=== PATIENT | female | born 1960 | race Two or more races ===

== ENCOUNTER 2017-10-07 18:28 | Emergency (ER) | payer BC ==
[~2017-10-07] VITALS: Ht 162.6 cm; Wt 88.2 kg
[2017-10-07 18:39] VITALS: BP 141/85
[2017-10-07 19:12] LABS: BASOPHILS # (AUTO) 0.02 x10^3/uL (0-0.1); BASOPHILS % (AUTO) 0 % (0-1); EOSINOPHILS # (AUTO) 0.11 x10^3/uL (0-0.4); EOSINOPHILS % (AUTO) 1 % (1-7); LYMPHOCYTES # (AUTO) 2.44 x10^3/uL (1-3.4); LYMPHOCYTES % (AUTO) 28 % (22-44); MD NO; MEAN CORPUSCULAR HEMOGLOBIN 31.6 pg (27.0-34.8); MEAN CORPUSCULAR HGB CONC 34.1 g/dL (32.4-35.8); MEAN CORPUSCULAR VOLUME 92.7 fL (80-100); MONOCYTES # (AUTO) 0.44 x10^3/uL (0.2-0.8); MONOCYTES % (AUTO) 5 % (2-9); NEUTROPHILS # (AUTO) 5.62 x10^3/uL (1.8-6.8); NEUTROPHILS % (AUTO) 65 % (42-75); PLATELET COUNT 251 x10^3/uL (130-400); RED BLOOD COUNT 4.51 x10^6/uL (3.82-5.3); RED CELL DISTRIBUTION WIDTH 13.9 % (9.6-15.2)
[2017-10-07 19:25] LABS: ALANINE AMINOTRANSFERASE 30 U/L (12-78); ALBUMIN 4.1 g/dL (3.4-5.0); ANION GAP 8 mmol/L (5-15); CHLORIDE 106 mmol/L (98-107); CREATININE 0.72 mg/dL (0.55-1.02)
[2017-10-07] MEDS ORDERED: LIRA0.6P SC (19:25)
[2017-10-07] MEDS ORDERED: INSU100V8 SQ (19:26)
[2017-10-07] MEDS ORDERED: OLME20TA17 PO (19:26)
[2017-10-07 19:27] LABS: ALKALINE PHOSPHATASE 92 U/L (45-117); BILIRUBIN,TOTAL 0.5 mg/dL (0.2-1.0); TOTAL PROTEIN 7.9 g/dL (6.4-8.2)
[2017-10-07 20:02] LABS: MICROSCOPIC INDICATED
[2017-10-07 20:06] LABS: CULTURE INDICATED? NO
== END 2017-10-07 21:16 | disposition home or self-care (01) ==
LOC: ED 20:35
DX: E11.65 Type 2 diabetes mellitus with hyperglycemia (principal); K59.00 Constipation, unspecified; I10 Essential (primary) hypertension; M54.5 Low back pain; Z79.4 Long term (current) use of insulin
CPT/HCPCS: 36415; 74021; 80053; 81001; 85025; 93005; 99285